=== PATIENT | male | born 1965 | race Caucasian/White ===

== ENCOUNTER 2018-12-30 11:26 | Day surgery (SDC) | payer OTHER ==
[~2018-12-30 11:26] MED LIST: Lactated Ringers 1,000 ML IV SCH
--- NOTE | 2018-12-30 12:46 | PCM.PREANE ---
Preanesthetic Assessment - Anesthesia/Transfusion/Family Hx Anesthesia History: Prior Anesthesia Without Reaction Family History of Anesthesia Reaction: No Transfusion History: No Prior Transfusion(s) - Review of Systems General: No Symptoms Pulmonary: No Symptoms Cardiovascular: No Symptoms Gastrointestinal: No Symptoms Neurological: No Symptoms Other: Reports: None - Physical Assessment O2 Sat by Pulse Oximetry: 95 Respiratory Rate: 16 Vital Signs: Last Vital Signs Temp 97.5 F 12/30/18 12:36 Pulse 87 12/30/18 12:36 Resp 16 12/30/18 12:36 BP 136/91 H 12/30/18 12:36 Pulse Ox 95 12/30/18 12:36 Height: 5 ft 9 in Weight: 101.151 kg ASA Class: 2 Mental Status: Alert & Oriented x3 Airway Class: Mallampati = 1 Dentition: Reports: Normal Dentition ROM/Head Extension: Full Lungs: Clear to Auscultation, Normal Respiratory Effort Cardiovascular: Regular Rate, Regular Rhythm - Allergies Allergies/Adverse Reactions: Allergies Allergy/AdvReac Type Severity Reaction Status Date / Time bupropion [From Wellbutrin] Allergy don't like Verified 12/27/18 08:52 how it makes me feel fluoxetine [From Prozac] Allergy dont like Verified 12/27/18 08:52 how it makes me feel - Blood Blood Available: No - Anesthesia Plan Pre-Op Medication Ordered: None - Acknowledgements Anesthesia Type Planned: MAC Pt an Appropriate Candidate for the Planned Anesthesia: Yes Alternatives and Risks of Anesthesia Discussed w Pt/Guardian: Yes Pt/Guardian Understands and Agrees with Anesthesia Plan: Yes Additional Comments: PMH: htn, remote hx of DVT, remote inhalational injury-uses proventil inhaler occasionally PLAN: mac/tiva PreAnesthesia Questionnaire HEENT History: Reports: Other (See Below) Other HEENT History: wears glasses, has barber hearing aids Cardiovascular History: Reports: High Cholesterol, Hypertension Respiratory History: Reports: COPD, PE Other Respiratory History: PE in 2000 Musculoskeletal History: Reports: Back Pain, Chronic, Fracture Other Musculoskeletal History: hx fx ribs, fingers and cracked vertebrae Psychiatric History: Reports: Anxiety, Depression Endocrine/Metabolic History: Reports: Obesity/BMI 30+ Dermatologic History: Reports: Other (See Below) - Past Surgical History Head Surgeries/Procedures: Reports: None HEENT Surgical History: Reports: Other (See Below) Other HEENT Surgeries/Procedures: hx of cyst removed from tongue Other Musculoskeletal Surgeries/Procedures:: hx "reattachment of rt pinky finger " Dermatological Surgical History: Reports: Skin Graft - SUBSTANCE USE Smoking Status *Q: Former Smoker Recreational Drug Use History: No - HOME MEDS Home Medications: Home Meds ALPRAZolam [Alprazolam] 1 tab PO BEDTIME PRN 12/27/18 [History] Albuterol [Proventil HFA] 2 puff INH ASDIRECTED PRN 12/27/18 [History] Aspirin [Adult Aspirin] 81 mg PO DAILY 12/27/18 [History] Lisinopril 20 mg PO DAILY PRN 12/27/18 [History] QUEtiapine Fumarate [Seroquel] 600 mg PO BEDTIME 12/27/18 [History] atorvaSTATin Calcium [Atorvastatin Calcium] 0.5 tab PO DAILY 12/27/18 [History] - CURRENT (IN HOUSE) MEDS Current Meds: Current Medications Lactated Ringer's (Ringers, Lactated) 1,000 mls @ 125 mls/hr IV ASDIRECTED MARANDA
[2018-12-30] MEDS ORDERED: Propofol 200 MG/20 ML SDV ONE ×2 (14:40→15:28)
--- NOTE | 2018-12-30 15:46 | PCM.POSTAN ---
POST ANESTHESIA ASSESSMENT - MENTAL STATUS Mental Status: Alert, Oriented - RESPIRATORY Respiratory Status: Respiratory Rate WNL, Airway Patent, O2 Saturation Stable - CARDIOVASCULAR CV Status: Pulse Rate WNL, Blood Pressure Stable - GASTROINTESTINAL GI Status: No Symptoms - POST OP HYDRATION Hydration Status: Adequate & Stable
--- NOTE | 2018-12-30 15:49 | PCM48HPAN ---
Post Anesthesia Note - EVALUATION WITHIN 48HRS OF ANESTHETIC Vital Signs in Normal Range: Yes Patient Participated in Evaluation: Yes Respiratory Function Stable: Yes Airway Patent: Yes Cardiovascular Function Stable: Yes Hydration Status Stable: Yes Pain Control Satisfactory: Yes Nausea and Vomiting Control Satisfactory: Yes Mental Status Recovered: Yes Resp Rate: 17
--- NOTE | 2018-12-30 15:49 | PCM.OPNOTE ---
- General Post-Op/Procedure Note Date of Surgery/Procedure: 12/30/18 Operative Procedure(s): egd w bx. colonoscopy Findings: see dict [id number] Pre Op Diagnosis: gerd and change in bowel habits Post-Op Diagnosis: Same Anesthesia Technique: Moderate Sedation Primary Surgeon: Lance Alfaro Complications: None Condition: Good
--- NOTE | 2018-12-30 16:52 | OR ---
SURGEON: Lance Alfaro MD DATE OF PROCEDURE: 12/30/2018 PREOPERATIVE DIAGNOSES: 1. Gastroesophageal reflux disease. 2. Current change in bowel habit. POSTOPERATIVE DIAGNOSES: 1. Gastroesophageal reflux disease. 2. Current change in bowel habit. PROCEDURES PERFORMED: Esophagogastroduodenoscopy with biopsy, and colonoscopy. PROCEDURE IN DETAIL: EGD: The patient was taken to the endoscopy room, and with the APPLICATION DEVELOPMENT INTERN, Diprivan was administered. A well-lubricated EGD scope was gently inserted through the oropharynx, down the esophagus, passing through the gastroesophageal junction, into the stomach. The mucosa was examined upon the passage. Any etiology will be noted. Once in the stomach, we continued to advance to the distal antrum, passed through the pylorus into the second portion of the duodenum. Again, the mucosa was examined for any abnormality and etiology. The scope was then retrieved back to the stomach and then retroflexed to look at the fundus of the stomach. If a biopsy was indicated, we will biopsy the antrum, body, and gastroesophageal junction. The air will be sucked out while the scope is retrieved to reduce the patient's discomfort. The patient tolerated the procedure well. There were no intraoperative complications. Dr. Alfaro was present through the whole procedure. Prior to surgery, a time-out had been called, the patient identified, procedure identified and antibiotic administered. Colonoscopy procedure: The patient was taken to the endoscopy room. A time out was called, patient identified, and procedure identified. Diprivan was then administrated. Patient went from awake to sleep, hearing doctor talking or door closing is normal. Perineum inspection and digital examination were then performed. A well- lubricated colonoscope was gently inserted through the rectum, advanced past the rectosigmoid junction, the descending colon, splenic flexure, transverse colon, hepatic flexure, ascending colon, arrived to the cecum. Cecum was identified as dictated in the finding. Then the scope was carefully withdrawn while attention was paid to the mucosal surface for any abnormality. Air will be sucked out during the scope withdrawal. At the rectum, retroflexed to examine any rectal diseases, fistula or hemorrhoids. Patient tolerated procedure well. There were no intraoperative complications, and Dr. Alfaro was present throughout the whole procedure. FINDINGS: EGD findings: 1. The patient is easily sedated with APPLICATION DEVELOPMENT INTERN and Diprivan. The patient is soundly snoring. 2. Oropharynx and proximal esophagus are free of history of disease. No stricture or inflammation. Distal esophagus shows moderate salmon-colored change, flame-like structure consistent with moderate amount GERD. Stomach rugae is normal in appearance. Antrum was a bit inflamed in some areas, looked like it is pretty inflamed, almost like evolving ulcer, but there is no edwin ulcer, and duodenum was grossly normal in appearance. Retroflexed look at the fundus of stomach, there is no hiatal hernia. Biopsy done at antrum, body, GE junction at 40 and sucked out the gas while scope pulling out. Colonoscopy findings: 1. The patient is easily sedated with APPLICATION DEVELOPMENT INTERN and Diprivan. The patient is soundly snoring. 2. Bowel prep is marginally acceptable to unacceptable, it is full of liquid stool, and also some semi-formed stool, and a lot of vegetable, undigested vegetable. Vegetable clogged up the scope and the opaque stool makes the study highly compromise. The patient's colon is rather redundant in the sigmoid, requiring some maneuver. Cecum indicated by ileocecal fold and one-to-one indentation can only be observed at this time. Light emittance and appendiceal orifice are not observed. Mucosa examined upon scope pulling out with constant large amount of copious irrigation. The patient does not seem to have diverticula inflammation, polyp, mass, growth, inflammation, stricture ulceration, AV malformation, none of those. The patient has moderate internal hemorrhoids and some external hemorrhoids. The patient would benefit from repeat colonoscopy 2 to 3 years from today, preferably two years because of the poor bowel prep the patient should refrain from having vegetable for at least 48 hours prior to procedure. TAL / RAJANI /[id number] ROBYN
== END 2018-12-30 16:10 | disposition home or self-care (01) ==
LOC: MW.SDS 11:26
PROVIDERS: ATTEND Surgery
DX: K21.9 Gastro-esophageal reflux disease without esophagitis (principal); K20.9 Esophagitis, unspecified; R19.4 Change in bowel habit; K64.8 Other hemorrhoids; K64.4 Residual hemorrhoidal skin tags; I10 Essential (primary) hypertension; E66.9 Obesity, unspecified; Z68.32 Body mass index [BMI] 32.0-32.9, adult; J44.9 Chronic obstructive pulmonary disease, unspecified; F41.9 Anxiety disorder, unspecified; F32.9 Major depressive disorder, single episode, unspecified; E78.00 Pure hypercholesterolemia, unspecified; Z87.891 Personal history of nicotine dependence; Z86.718 Personal history of other venous thrombosis and embolism; Z88.8 Allergy status to other drugs, medicaments and biological substances
CPT/HCPCS: 43239; 45378; J2704; J7120; 88305; 88312

== ENCOUNTER 2020-08-02 18:41 | Observation (INO) | payer OTHER ==
[2020-08-02] MEDS ORDERED: Sodium Chloride 0.9% 2.5 ML Syringe FLUSH PRN (19:38)
[2020-08-02] MEDS ORDERED: Sodium Chloride 0.9% 10 ML Syringe FLUSH PRN (19:38)
[2020-08-02] MEDS ORDERED: Lidocaine 5% 700 MG Patch TOP ONE (19:39)
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
--- NOTE | 2020-08-02 20:01 | CT ---
Head CT Technique: Multiple axial sections through the brain were obtained. Intravenous contrast was not utilized. Comparison: No prior intracranial imaging is available. Findings: Ventricles along the basal cisterns and sulci over the convexities are mildly prominent. No abnormal parenchymal densities are seen. No evidence of intracranial hemorrhage. No midline shift or mass-effect is appreciated. Bone window settings were reviewed. Visualized mastoid sinuses and paranasal sinuses show nothing acute. No acute calvarial finding is seen. Impression: 1. Mild generalized atrophy. 2. No acute intracranial abnormality is identified. Diagnostic code #1 This report was dictated in MDT
[2020-08-02 20:02] LABS: BLOOD UREA NITROGEN,BUN 12 mg/dL (7.0-18.0); CARBON DIOXIDE,CO2 25.7 mmol/L (21.0-32.0); CHLORIDE,CL 107 mmol/L (98-107); GLUCOSE RANDOM 119 mg/dL (74-106); POTASSIUM,K 3.4 mmol/L (3.5-5.1); SODIUM,NA 143 mmol/L (136-148)
--- NOTE | 2020-08-02 20:09 | CR ---
Right shoulder: 3 views of the right shoulder were obtained. Comparison: Prior right shoulder study of 04/10/20 and prior right shoulder MRI of 04/29/20. Findings: Mild joint space narrowing and mild inferior bony projection off the acromioclavicular joint. Glenohumeral joint appears within normal limits. No acute fracture, dislocation or other bony abnormality is appreciated. Impression: 1. Mild degenerative change within the acromioclavicular joint which is stable from prior exam. 2. Nothing acute is seen on right shoulder study. Diagnostic code #2 This report was dictated in MDT
[2020-08-02] MEDS ORDERED: OLANZapine 10 MG in Water For Injection, Sterile 2.1 ML IM ONE (22:52)
[2020-08-02] MEDS ORDERED: Acetaminophen 325 MG Tab PO PRN (23:25)
[2020-08-02] MEDS ORDERED: Albuterol/Ipratropium 3.0-0.5 MG/3 ML Neb Soln NEB PRN (23:25)
[2020-08-02] MEDS ORDERED: LORazepam 2 MG/ML SDV IV PRN (23:25)
[2020-08-02] MEDS ORDERED: Potassium Chloride 10% 20 MEQ/15 ML Soln 30 ML UD Cup PO ONE (23:30)
--- NOTE | 2020-08-03 06:21 | PCM.SN.2 ---
- Free Text/Narrative Note: Contact information for friend that dropped patient off for corroborating information: Duane Singh
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
== END 2020-08-03 11:13 | disposition home or self-care (01) ==
LOC: MW.ED 18:41 → MW.MS 22:11
PROVIDERS: ADMIT Student in an Organized Health Care Education/Training Program; ATTEND Student in an Organized Health Care Education/Training Program
DX: R41.82 Altered mental status, unspecified (principal); E78.00 Pure hypercholesterolemia, unspecified; I10 Essential (primary) hypertension; J44.9 Chronic obstructive pulmonary disease, unspecified; F41.9 Anxiety disorder, unspecified; E78.5 Hyperlipidemia, unspecified; E66.9 Obesity, unspecified; F32.9 Major depressive disorder, single episode, unspecified; Z20.828 Contact with and (suspected) exposure to other viral communicable diseases; Z88.8 Allergy status to other drugs, medicaments and biological substances; Z79.82 Long term (current) use of aspirin; Z79.899 Other long term (current) drug therapy; Z68.30 Body mass index [BMI] 30.0-30.9, adult
CPT/HCPCS: 36415; 70450; 73030; 80053; 80305; 80307; 82140; 82962; 83605; 84443; 84484; 85025; 87635; 93005; 96372; 99285; A9270; J3490; G0378; U0002

== ENCOUNTER 2020-08-28 06:42 | Day surgery (SDC) | payer OTHER ==
[2020-08-28] MEDS ORDERED: Midazolam 1 MG/ML 2 ML SDV ONE ×2 (07:20→07:29)
[2020-08-28] MEDS ORDERED: Bupivacaine 0.5% 30 ML SDV ONE (07:24)
[2020-08-28] MEDS: fentaNYL 100 MCG/2 ML SDV ONE ×2 (07:25→08:10)
[2020-08-28] MEDS ORDERED: Glycopyrrolate 0.2 MG/ML SDV ONE ×2 (07:26→07:34)
[2020-08-28] MEDS ORDERED: Ketorolac 30 MG/ML SDV ONE (07:26)
[2020-08-28] MEDS ORDERED: Dexamethasone 4 MG/ML 5 ML MDV ONE (07:26)
[2020-08-28] MEDS ORDERED: Ondansetron 4 MG/2 ML SDV ONE (07:26)
[2020-08-28] MEDS ORDERED: Sodium Chloride 0.9% 20 ML ONE (07:26)
[2020-08-28] MEDS ORDERED: Lidocaine 2% 5 ML SDV ONE (07:26)
[2020-08-28] MEDS ORDERED: ceFAZolin 1 GM Vial ONE (07:26)
[2020-08-28] MEDS ORDERED: Propofol 200 MG/20 ML SDV ONE (07:29)
[2020-08-28] MEDS ORDERED: fentaNYL 100 MCG/2 ML SDV ONE (07:30)
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
[2020-08-28] MEDS ORDERED: Rocuronium Bromide 50 MG/5 ML Syringe ONE (07:34)
[2020-08-28] MEDS ORDERED: Sugammadex Sodium 200 MG/2 ML VIAL ONE (07:35)
[2020-08-28] MEDS: Lactated Ringers 1,000 ML IV SCH ×2 (07:50→12:39)
[2020-08-28] MEDS ORDERED: ceFAZolin 2 GM in Premix Bag 1 BAG IV SCH (08:00)
[2020-08-28] MEDS ORDERED: Midazolam 1 MG/ML 2 ML SDV IVPUSH ONE (08:05)
[2020-08-28] MEDS ORDERED: fentaNYL 50 MCG/ML SDV IVPUSH ONE (08:06)
[2020-08-28] MEDS ORDERED: Phenylephrine 1% 10 MG/ML SDV ONE (08:19)
[2020-08-28] MEDS ORDERED: Acetaminophen 1,000 MG in Premix Bag 1 BAG IV PRN (08:44)
--- NOTE | 2020-08-28 08:49 | PCM.PRNOTE ---
- Free Text/Narrative Note: Anes Note R ISB under IV sedation.. Patient brought to OR ! and monitors applied. Using a landmark technique, the R IS groove aas identified. 1/2 cc 1% lido injected subq. Using a 22 X 2 insulated needle and a nerve stimulator set at 1.2mA, the appropraite twitch was obtained without parasthesia. Carefull aspiration was performed. No blood was returned. 30cc 0.5% bupivicaine with 8 mg decadron added was carefullly and slowly injected. Smooth and uneventful procedure. Patient immediately reports improvement in r should pain, which was 8 out of 10 preop. Liza well. Time with patient [id number] James Peterson CRNA
--- NOTE | 2020-08-28 09:30 | PCM.OPNOTE ---
- General Post-Op/Procedure Note Date of Surgery/Procedure: 08/28/20 Operative Procedure(s): Right shoulder open rotator cuff repair and open acromioplasty Findings: Right shoulder moderate sized acromial spur and full-thickness rotator cuff tear of the anterior supraspinatus tendon Pre Op Diagnosis: Right shoulder full-thickness rotator cuff tear Post-Op Diagnosis: Right shoulder full-thickness rotator cuff tear Anesthesia Technique: General ET Tube, Regional Block Primary Surgeon: Vinny Montes Architectural Model Maker: Melissa Babin Architectural Model Maker Was Necessary: Positioning and retraction Pathology: Acromial bone cuts EBL in mLs: 10 Complications: None Free Text/Narrative:: MRI showed a full-thickness tear of the supraspinatus rotator cuff tendon. Patient had failed nonoperative management. After discussion of the risks and benefits of surgery, the patient consented to proceed with surgery. He was medically cleared for surgery. Patient was taken to the operating room. He was placed in a low beachchair position. The right shoulder and upper extremity were prepped and draped in the usual sterile manner. An oblique incision was made anteriorly over the anterior aspect of the acromion. Skin was incised with a scalpel. Subcutaneous tissue was incised electrocautery. The anterior raphae of the deltoid was split between fibers. The anterior head of the deltoid was taken off the anterior acromion. A retractor was placed between the acromion and the rotator cuff tendons to protect the tendons. An acromioplasty was performed with an oscillating saw taking an anterior cut and then an inferior cut with a smooth undersurface of the acromion noted. The full-thickness tear of the anterior aspect of the supraspinatus was identified. The degenerative tendon was excised with a scalpel. A bleeding bony bed was created with a rongeur. A margin convergence suture was placed with #2 FiberWire. 2 suture repairs were then placed through bone tunnels and Estrada-Brandon's sutures into the tendon. These were then tightened bringing the tendon edges back to the bleeding bone bed. Wounds were irrigated. The deltoid was repaired back to the acromion with #5 Ethibond suture through bone tunnels. The anterior raphae was closed with interrupted #1 Vicryl suture. Subcutaneous tissue was closed with interrupted 2-0 Vicryl suture. Running Monocryl for final skin closure. A sterile dressing was applied and patient was placed in a sling and a come to the recovery in stable condition. Pain management: Regional block, ibuprofen, acetaminophen, oxycodone. Venous thromboembolism prophylaxis: Not indicated for soft tissue upper extremity procedure and ambulatory patient Prophylactic antibiotics: Not indicated for outpatient procedure Restrictions: Patient is nonweightbearing on his right upper extremity for 3 months. He should be in a sling full-time for the first 6 weeks with pendulum exercises only and no active range of motion or lifting. At 6 weeks he may begin active range of motion of the shoulder with physical therapy, but should not lift greater than 1 pound. At 3 months he should begin rotator cuff strengthening.
[2020-08-28] MEDS: fentaNYL 100 MCG/2 ML SDV IVPUSH PRN ×2 (09:48→09:54)
[2020-08-28] MEDS ORDERED: HYDROmorphone 2 MG/ML Syringe ONE (10:00)
[2020-08-28] MEDS: HYDROmorphone 2 MG/ML Syringe IVPUSH PRN ×4 (10:02→10:21)
[2020-08-28] MEDS ORDERED: HYDROmorphone 2 MG/ML Syringe IVPUSH PRN (10:12)
--- NOTE | 2020-08-28 10:45 | PCM.POSTAN ---
POST ANESTHESIA ASSESSMENT - MENTAL STATUS Mental Status: Alert, Oriented - VITAL SIGNS Vital Signs: Last Vital Signs Temp 36.5 C 08/28/20 09:34 Pulse 105 H 08/28/20 10:24 Resp 11 L 08/28/20 10:24 BP 164/105 H 08/28/20 10:24 Pulse Ox 97 08/28/20 10:24 - RESPIRATORY Respiratory Status: Respiratory Rate WNL, Airway Patent, O2 Saturation Stable - CARDIOVASCULAR CV Status: Pulse Rate WNL, Blood Pressure Stable - GASTROINTESTINAL GI Status: No Symptoms - PAIN Pain Score: 6 - POST OP HYDRATION Hydration Status: Adequate & Stable - OBSERVATIONS Free Text/Narrative:: No anesthesia problems
[2020-08-28] MEDS ORDERED: diphenhydrAMINE 50 MG/ML SDV ONE (10:46)
[2020-08-28] MEDS ORDERED: diphenhydrAMINE 50 MG/ML SDV IVPUSH ONE (11:26)
[2020-08-28] MEDS ORDERED: LORazepam 2 MG/ML SDV IVPUSH ONE (11:43)
[2020-08-28] MEDS ORDERED: oxyCODONE 5 MG Tab ONE (12:16)
[2020-08-28] MEDS ORDERED: oxyCODONE 5 MG Tab PO ONE (12:23)
--- NOTE | 2020-08-28 13:16 | PCM48HPAN ---
Post Anesthesia Note - EVALUATION WITHIN 48HRS OF ANESTHETIC Vital Signs in Normal Range: Yes Patient Participated in Evaluation: Yes Respiratory Function Stable: Yes Airway Patent: Yes Cardiovascular Function Stable: Yes Hydration Status Stable: Yes Pain Control Satisfactory: Yes Nausea and Vomiting Control Satisfactory: Yes Mental Status Recovered: Yes Vital Signs: Last Vital Signs Temp 36.8 C 08/28/20 10:33 Pulse 108 H 08/28/20 11:15 Resp 16 08/28/20 12:00 BP 143/87 H 08/28/20 12:00 Pulse Ox 95 08/28/20 12:00 - COMMENTS/OBSERVATIONS Free Text/Narrative:: No anesthesia problems
== END 2020-08-28 13:25 | disposition home or self-care (01) ==
LOC: MW.SDS 06:42
PROVIDERS: ATTEND Orthopaedic Surgery
DX: M75.121 Complete rotator cuff tear or rupture of right shoulder, not specified as traumatic (principal); F41.9 Anxiety disorder, unspecified; G47.00 Insomnia, unspecified; R00.0 Tachycardia, unspecified; E78.5 Hyperlipidemia, unspecified; G89.29 Other chronic pain; I10 Essential (primary) hypertension; E78.00 Pure hypercholesterolemia, unspecified; F32.9 Major depressive disorder, single episode, unspecified; Z88.8 Allergy status to other drugs, medicaments and biological substances; Z79.899 Other long term (current) drug therapy; Z79.82 Long term (current) use of aspirin
CPT/HCPCS: 23130; 23412; A9270; J0690; J1100; J1170; J1200; J1885; J2001; J2060; J2250; J2370; J2405; J2704; J3010; J3490; J7120

== ENCOUNTER 2020-10-05 18:45 | Emergency (ER) | payer OTHER ==
[2020-10-05] MEDS ORDERED: Naloxone 0.4 MG/ML Syringe IVPUSH ONE ×3 (19:16→19:39)
[2020-10-05] MEDS ORDERED: Naloxone 0.4 MG/ML Syringe ONE (19:37)
[2020-10-05] MEDS ORDERED: Lactated Ringers 1,000 ML IV ONE (19:39)
[2020-10-05] MEDS ORDERED: Sodium Chloride 0.9% 10 ML Syringe FLUSH PRN (19:39)
[2020-10-05] MEDS ORDERED: Sodium Chloride 0.9% 2.5 ML Syringe FLUSH PRN (19:39)
--- NOTE | 2020-10-05 19:49 | EDM.PDOC ---
ED HPI GENERAL MEDICAL PROBLEM - General Chief Complaint: Upper Extremity Injury/Pain Stated Complaint: pain Time Seen by Provider: 10/05/20 19:09 Source of Information: Reports: Patient, Family, Other (roommate) History Limitations: Reports: Altered Mental Status - History of Present Illness INITIAL COMMENTS - FREE TEXT/NARRATIVE: 55-year-old male h/o narcotic dependence was brought in by his roommate for decreased LOC. His roommate warned us upon drop off that there is concern for substance overdose and not to give him anything for pain or anxiety. History and ROS is limited secondary to altered mental status. He complains of right shoulder pain. He is requesting meds for pain. His right shoulder pain is moderate, constant, exacerbated with range of motion, no alleviating factors, nonradiating. He recently had right rotator cuff surgery 08/28. [facility] called and informed us that he was prescribed 60 tablets of Xanax on Wednesday by another doctor, Dr. Augie Ruiz MD, but today there were only 12 tablets left in the bottle. Today at [facility], he claims that his took his medications and he was prescribed 4 tablets of Xanax in the ER today. HPI and ROS is limited secondary to altered mental status. Past medical history: No additional pertinent history Past Surgical history: No additional pertinent history Social history: No additional pertinent history Family history: No additional pertinent history PHYSICAL EXAM General: obtunded, slow to answer questions, no distress. HEENT: dry mucous membrane, 2mm pupils B/L sluggish, slurred speech Neck: supple, no meningismus, no Kernig or Brudzinski Cardiac: S1S2 tachycardia Respiratory: bradypneic Abdomen: Soft, nontender, no rebound or guarding, nondistended, no pulsatile mass. Back: nontender Musculoskeletal: NVI distally, right rotator cuff no erythema, nontender, no warmth, no drainage, no deformity Neuro: obtunded no pain Pain Score (Numeric/FACES): 0 - Related Data Allergies Allergy/AdvReac Type Severity Reaction Status Date / Time bupropion [From Wellbutrin] Allergy don't like Verified 08/22/20 11:03 how it makes me feel fluoxetine [From Prozac] Allergy dont like Verified 08/22/20 09:30 how it makes me feel Home Meds: Home Meds Albuterol [Proventil HFA] 2 puff INH ASDIRECTED PRN 12/27/18 [History] Aspirin [Adult Aspirin] 81 mg PO DAILY 12/27/18 [History] QUEtiapine Fumarate [Seroquel] 600 mg PO BEDTIME 08/22/20 [History] Acetaminophen/HYDROcodone [[place] 325-5 MG] 1 tab PO Q6H #20 tablet 08/28/20 [Rx] Ibuprofen 800 mg PO TID #60 tablet 08/28/20 [Rx] Past Medical History HEENT History: Reports: Hard of Hearing, Other (See Below) Other HEENT History: wears glasses, has barber hearing aids Cardiovascular History: Reports: High Cholesterol, Hypertension, Other (See Below) Other Cardiovascular History: HTN and high cholesterol in the past Respiratory History: Reports: PE Other Respiratory History: PE in 2000, placed on blood thinner for a while, Ok since Gastrointestinal History: Reports: None Genitourinary History: Reports: None Musculoskeletal History: Reports: Fracture, Other (See Below) Other Musculoskeletal History: hx fx ribs, fingers and cracked vertebrae Neurological History: Reports: None Psychiatric History: Reports: PTSD Other Psychiatric History: unable to verify Endocrine/Metabolic History: Reports: None, Obesity/BMI 30+ Hematologic History: Reports: None Immunologic History: Reports: None Oncologic (Cancer) History: Reports: None Dermatologic History: Reports: None, Other (See Below) - Infectious Disease History Infectious Disease History: Reports: None - Past Surgical History Head Surgeries/Procedures: Reports: None HEENT Surgical History: Reports: Other (See Below) Other HEENT Surgeries/Procedures: hx of cyst removed from tongue Cardiovascular Surgical History: Reports: None Other Cardiovascular Surgeries/Procedures: unable to verify Respiratory Surgical History: Reports: None Other Respiratory Surgeries/Procedures: unable to verify GI Surgical History: Reports: None Other GI Surgeries/Procedures: unable to verify Male Surgical History: Reports: None Other Male Surgeries/Procedures: unable to verify Endocrine Surgical History: Reports: None Other Endocrine Surgeries/Procedures: unable to verify Neurological Surgical History: Reports: None Other Neurological Surgeries/Procedures: unable to verify Musculoskeletal Surgical History: Reports: Other (See Below) Other Musculoskeletal Surgeries/Procedures:: hx "reattachment of rt pinky finger" Oncologic Surgical History: Reports: None Other Oncologic Surgeries/Procedures: unable to verify Dermatological Surgical History: Reports: Other (See Below) Social & Family History - Family History Family Medical History: No Pertinent Family History - Tobacco Use Tobacco Use Status *Q: Unknown Ever Used Tobacco - Caffeine Use Caffeine Use: Reports: None Review of Systems - Review of Systems Review Of Systems: See Below (see dictation) ED EXAM, GENERAL - Physical Exam Exam: See Below (see dictation) #1 Interpretation EKG Interpretation Comments: Heart rate = 135 bpm, sinus tachycardia, QTc 467, ST depression V2 - V5, normal QRS interval, no STEMI. EKG and rhythm strip interpreted by me at 1927 Course - Vital Signs Last Recorded V/S: Last Vital Signs Temp 98.8 F 10/05/20 19:18 Pulse 120 H 10/05/20 20:01 Resp 16 10/05/20 20:01 BP 148/85 H 10/05/20 20:01 Pulse Ox 95 10/05/20 20:01 - Orders/Labs/Meds Orders: Active Orders 24 hr Category Date Time Status Cardiac Monitoring [RC] . DIRECTED Care 10/05/20 19:39 Active EKG Documentation Completion [RC] STAT Care 10/05/20 19:40 Active Pulse Oximetry [RC] ASDIRECTED Care 10/05/20 19:39 Active Chest 1V Frontal [CR] Stat Exams 10/05/20 21:15 Taken Head wo Cont [CT] Stat Exams 10/05/20 21:15 Taken BLOOD GAS ARTERIAL [BG] Stat Lab 10/05/20 19:40 Ordered CORONAVIRUS COVID-19 PCR PHL Stat Lab 10/05/20 19:39 Ordered CULTURE BLOOD [BC] Stat Lab 10/05/20 20:10 Received CULTURE BLOOD [BC] Stat Lab 10/05/20 20:20 Received PROCALCITONIN [REF] Stat Lab 10/05/20 19:20 Received Sodium Chloride 0.9% [Saline Flush] Med 10/05/20 19:39 Active 10 ml FLUSH ASDIRECTED PRN Sodium Chloride 0.9% [Saline Flush] Med 10/05/20 19:39 Active 2.5 ml FLUSH ASDIRECTED PRN Blood Culture x2 Reflex Set [OM.PC] Stat Oth 10/05/20 19:40 Ordered Saline Lock Insert [OM.PC] Stat Oth 10/05/20 19:39 Ordered Medication Orders Sodium Chloride (Saline Flush) 10 ml FLUSH ASDIRECTED PRN PRN Reason: Keep Vein Open Last Admin: 10/05/20 19:54 Dose: 10 ml Documented by: ANITA Sodium Chloride (Saline Flush) 2.5 ml FLUSH ASDIRECTED PRN PRN Reason: Keep Vein Open Last Admin: 10/05/20 19:54 Dose: 2.5 ml Documented by: ANITA Labs: Laboratory Tests 10/05/20 10/05/20 10/05/20 Range/Units 19:20 19:20 19:20 WBC 5.35 (4.0-11.0) K/uL RBC 5.05 (4.50-5.90) M/uL Hgb 15.3 (13.0-17.0) g/dL Hct 44.4 (38.0-50.0) % MCV 87.9 (80.0-98.0) fL MCH 30.3 (27.0-32.0) pg MCHC 34.5 (31.0-37.0) g/dL RDW Std Deviation 39.5 (28.0-62.0) fl RDW Coeff of Pushpa 13 (11.0-15.0) % Plt Count 278 (150-400) K/uL MPV 9.80 (7.40-12.00) fL Neut % (Auto) 53.4 (48.0-80.0) % Lymph % (Auto) 36.1 (16.0-40.0) % [place] % (Auto) 8.0 (0.0-15.0) % Eos % (Auto) 2.1 (0.0-7.0) % Baso % (Auto) 0.4 (0.0-1.5) % Neut # (Auto) 2.9 (1.4-5.7) K/uL Lymph # (Auto) 1.9 (0.6-2.4) K/uL [place] # (Auto) 0.4 (0.0-0.8) K/uL Eos # (Auto) 0.1 (0.0-0.7) K/uL Baso # (Auto) 0.0 (0.0-0.1) K/uL Nucleated RBC % 0.0 /100WBC Nucleated RBCs # 0 K/uL ESR (0-19) mm/hr INR 1.05 APTT 26.4 (18.6-31.3) SEC D-Dimer, Quantitative 0.43 (0.0-0.50) mg/L FEU Lactate 1.6 (0.20-2.00) mmol/L Sodium (136-148) mmol/L Potassium (3.5-5.1) mmol/L Chloride (98-107) mmol/L Carbon Dioxide (21.0-32.0) mmol/L BUN (7.0-18.0) mg/dL Creatinine (0.8-1.3) mg/dL Est Cr Clr Drug Dosing Estimated GFR (MDRD) ml/min Glucose (74-106) mg/dL Calcium (8.5-10.1) mg/dL Phosphorus (2.6-4.7) mg/dL Magnesium (1.8-2.4) mg/dL Total Bilirubin (0.2-1.0) mg/dL AST (15-37) IU/L ALT (14-63) IU/L Alkaline Phosphatase (46-116) U/L Troponin I (0.000-0.056) ng/mL C-Reactive Protein (0.00-0.90) mg/dL Total Protein (6.4-8.2) g/dL Albumin (3.4-5.0) g/dL Globulin (2.6-4.0) g/dL Albumin/Globulin Ratio (0.9-1.6) Free T4 (0.76-1.46) ng/dL TSH 3rd Generation (0.36-3.74) uIU/mL Urine Color Urine Appearance Urine pH (5.0-8.0) Ur Specific Robinson (1.001-1.035) Urine Protein (NEGATIVE) mg/dL Urine Glucose (UA) (NEGATIVE) mg/dL Urine Ketones (NEGATIVE) mg/dL Urine Occult Blood (NEGATIVE) Urine Nitrite (NEGATIVE) Urine Bilirubin (NEGATIVE) Urine Urobilinogen (<2.0) EU/dL Ur Leukocyte Esterase (NEGATIVE) Urine RBC (0-2/HPF) Urine WBC (0-5/HPF) Ur Epithelial Cells (NONE-FEW) Urine Bacteria (NEGATIVE) Salicylates (0-20) mg/dL Urine Opiates Screen (NEGATIVE) Ur Oxycodone Screen (NEGATIVE) Urine Methadone Screen (NEGATIVE) Acetaminophen ug/mL Ur Barbiturates Screen (NEGATIVE) Ur Phencyclidine Scrn (NEGATIVE) Ur Amphetamine Screen (NEGATIVE) U Methamphetamines Scrn (NEGATIVE) U Benzodiazepines Scrn (NEGATIVE) U Cocaine Metab Screen (NEGATIVE) U Marijuana (THC) Screen (NEGATIVE) Ethyl Alcohol mg/dL 10/05/20 10/05/20 10/05/20 Range/Units 19:20 19:20 20:54 WBC (4.0-11.0) K/uL RBC (4.50-5.90) M/uL Hgb (13.0-17.0) g/dL Hct (38.0-50.0) % MCV (80.0-98.0) fL MCH (27.0-32.0) pg MCHC (31.0-37.0) g/dL RDW Std Deviation (28.0-62.0) fl RDW Coeff of Pushpa (11.0-15.0) % Plt Count (150-400) K/uL MPV (7.40-12.00) fL Neut % (Auto) (48.0-80.0) % Lymph % (Auto) (16.0-40.0) % [place] % (Auto) (0.0-15.0) % Eos % (Auto) (0.0-7.0) % Baso % (Auto) (0.0-1.5) % Neut # (Auto) (1.4-5.7) K/uL Lymph # (Auto) (0.6-2.4) K/uL [place] # (Auto) (0.0-0.8) K/uL Eos # (Auto) (0.0-0.7) K/uL Baso # (Auto) (0.0-0.1) K/uL Nucleated RBC % /100WBC Nucleated RBCs # K/uL ESR 5 (0-19) mm/hr INR APTT (18.6-31.3) SEC D-Dimer, Quantitative (0.0-0.50) mg/L FEU Lactate (0.20-2.00) mmol/L Sodium 140 (136-148) mmol/L Potassium 3.6 (3.5-5.1) mmol/L Chloride 103 (98-107) mmol/L Carbon Dioxide 26.9 (21.0-32.0) mmol/L BUN 9 (7.0-18.0) mg/dL Creatinine 1.1 (0.8-1.3) mg/dL Est Cr Clr Drug Dosing TNP Estimated GFR (MDRD) > 60.0 ml/min Glucose 151 H (74-106) mg/dL Calcium 8.8 (8.5-10.1) mg/dL Phosphorus 2.9 (2.6-4.7) mg/dL Magnesium 2.2 (1.8-2.4) mg/dL Total Bilirubin 0.4 (0.2-1.0) mg/dL AST 13 L (15-37) IU/L ALT 26 (14-63) IU/L Alkaline Phosphatase 67 (46-116) U/L Troponin I < 0.050 (0.000-0.056) ng/mL C-Reactive Protein 0.30 (0.00-0.90) mg/dL Total Protein 7.5 (6.4-8.2) g/dL Albumin 4.3 (3.4-5.0) g/dL Globulin 3.2 (2.6-4.0) g/dL Albumin/Globulin Ratio 1.3 (0.9-1.6) Free T4 1.58 H (0.76-1.46) ng/dL TSH 3rd Generation 1.11 (0.36-3.74) uIU/mL Urine Color Urine Appearance Urine pH (5.0-8.0) Ur Specific Robinson (1.001-1.035) Urine Protein (NEGATIVE) mg/dL Urine Glucose (UA) (NEGATIVE) mg/dL Urine Ketones (NEGATIVE) mg/dL Urine Occult Blood (NEGATIVE) Urine Nitrite (NEGATIVE) Urine Bilirubin (NEGATIVE) Urine Urobilinogen (<2.0) EU/dL Ur Leukocyte Esterase (NEGATIVE) Urine RBC (0-2/HPF) Urine WBC (0-5/HPF) Ur Epithelial Cells (NONE-FEW) Urine Bacteria (NEGATIVE) Salicylates 1.5 (0-20) mg/dL Urine Opiates Screen NEGATIVE (NEGATIVE) Ur Oxycodone Screen NEGATIVE (NEGATIVE) Urine Methadone Screen NEGATIVE (NEGATIVE) Acetaminophen <2.0 ug/mL Ur Barbiturates Screen NEGATIVE (NEGATIVE) Ur Phencyclidine Scrn NEGATIVE (NEGATIVE) Ur Amphetamine Screen NEGATIVE (NEGATIVE) U Methamphetamines Scrn NEGATIVE (NEGATIVE) U Benzodiazepines Scrn POSITIVE (NEGATIVE) U Cocaine Metab Screen NEGATIVE (NEGATIVE) U Marijuana (THC) Screen NEGATIVE (NEGATIVE) Ethyl Alcohol < 3.0 mg/dL 10/05/20 Range/Units 20:54 WBC (4.0-11.0) K/uL RBC (4.50-5.90) M/uL Hgb (13.0-17.0) g/dL Hct (38.0-50.0) % MCV (80.0-98.0) fL MCH (27.0-32.0) pg MCHC (31.0-37.0) g/dL RDW Std Deviation (28.0-62.0) fl RDW Coeff of Pushpa (11.0-15.0) % Plt Count (150-400) K/uL MPV (7.40-12.00) fL Neut % (Auto) (48.0-80.0) % Lymph % (Auto) (16.0-40.0) % [place] % (Auto) (0.0-15.0) % Eos % (Auto) (0.0-7.0) % Baso % (Auto) (0.0-1.5) % Neut # (Auto) (1.4-5.7) K/uL Lymph # (Auto) (0.6-2.4) K/uL [place] # (Auto) (0.0-0.8) K/uL Eos # (Auto) (0.0-0.7) K/uL Baso # (Auto) (0.0-0.1) K/uL Nucleated RBC % /100WBC Nucleated RBCs # K/uL ESR (0-19) mm/hr INR APTT (18.6-31.3) SEC D-Dimer, Quantitative (0.0-0.50) mg/L FEU Lactate (0.20-2.00) mmol/L Sodium (136-148) mmol/L Potassium (3.5-5.1) mmol/L Chloride (98-107) mmol/L Carbon Dioxide (21.0-32.0) mmol/L BUN (7.0-18.0) mg/dL Creatinine (0.8-1.3) mg/dL Est Cr Clr Drug Dosing Estimated GFR (MDRD) ml/min Glucose (74-106) mg/dL Calcium (8.5-10.1) mg/dL Phosphorus (2.6-4.7) mg/dL Magnesium (1.8-2.4) mg/dL Total Bilirubin (0.2-1.0) mg/dL AST (15-37) IU/L ALT (14-63) IU/L Alkaline Phosphatase (46-116) U/L Troponin I (0.000-0.056) ng/mL C-Reactive Protein (0.00-0.90) mg/dL Total Protein (6.4-8.2) g/dL Albumin (3.4-5.0) g/dL Globulin (2.6-4.0) g/dL Albumin/Globulin Ratio (0.9-1.6) Free T4 (0.76-1.46) ng/dL TSH 3rd Generation (0.36-3.74) uIU/mL Urine Color YELLOW Urine Appearance CLEAR Urine pH 5.5 (5.0-8.0) Ur Specific [place] >= 1.030 (1.001-1.035) Urine Protein NEGATIVE (NEGATIVE) mg/dL Urine Glucose (UA) NEGATIVE (NEGATIVE) mg/dL Urine Ketones NEGATIVE (NEGATIVE) mg/dL Urine Occult Blood NEGATIVE (NEGATIVE) Urine Nitrite NEGATIVE (NEGATIVE) Urine Bilirubin NEGATIVE (NEGATIVE) Urine Urobilinogen 0.2 (<2.0) EU/dL Ur Leukocyte Esterase TRACE H (NEGATIVE) Urine RBC 0-1 (0-2/HPF) Urine WBC 0-2 (0-5/HPF) Ur Epithelial Cells RARE (NONE-FEW) Urine Bacteria RARE (NEGATIVE) Salicylates (0-20) mg/dL Urine Opiates Screen (NEGATIVE) Ur Oxycodone Screen (NEGATIVE) Urine Methadone Screen (NEGATIVE) Acetaminophen ug/mL Ur Barbiturates Screen (NEGATIVE) Ur Phencyclidine Scrn (NEGATIVE) Ur Amphetamine Screen (NEGATIVE) U Methamphetamines Scrn (NEGATIVE) U Benzodiazepines Scrn (NEGATIVE) U Cocaine Metab Screen (NEGATIVE) U Marijuana (THC) Screen (NEGATIVE) Ethyl Alcohol mg/dL Meds: Medications Generic Name Dose Route Start Last Admin Trade Name Freq PRN Reason Stop Dose Admin Sodium Chloride 10 ml 10/05/20 19:39 10/05/20 19:54 Saline Flush FLUSH 10 ml ASDIRECTED PRN Administration Keep Vein Open Sodium Chloride 2.5 ml 10/05/20 19:39 10/05/20 19:54 Saline Flush FLUSH 2.5 ml ASDIRECTED PRN Administration Keep Vein Open Discontinued Medications Generic Name Dose Route Start Last Admin Trade Name Freq PRN Reason Stop Dose Admin Lactated Ringer's 1,000 mls @ 999 mls/hr 10/05/20 19:39 10/05/20 19:54 Ringers, Lactated IV 10/05/20 20:39 999 mls/hr .BOLUS ONE Administration Naloxone HCl 1 mg 10/05/20 19:16 10/05/20 19:22 Narcan IVPUSH 10/05/20 19:17 1 mg ONETIME ONE Administration Naloxone HCl 1 mg 10/05/20 19:35 10/05/20 19:39 Narcan IVPUSH 10/05/20 19:36 1 mg ONETIME ONE Administration Naloxone HCl 1 mg 10/05/20 19:39 10/05/20 19:55 Narcan IVPUSH 10/05/20 19:40 1 mg ONETIME ONE Administration Naloxone HCl Confirm 10/05/20 19:37 10/05/20 19:43 Narcan Administered 10/05/20 19:38 Not Given Dose 1.2 mg .ROUTE .STK-MED ONE - Re-Assessments/Exams Free Text/Narrative Re-Assessment/Exam: 10/05/20 19:30 Patient was bradypneic, oxygen saturation at triage was 90% on room air, placed on 2L nasal cannula. Accu-Chek within normal limits, given 1 mg IV Narcan with transient improvement in mentation. 10/05/20 19:45 I reassessed the patient, his mentation remains obtunded, will give 2nd 1mg IV Narcan. 10/05/20 19:49 Mentation improved after second 1mg IV Narcan. 10/05/20 20:43 Patient is now up and standing, requesting to go home. We tried to reach his who was unavailable. 10/05/20 20:49 I spoke with his Carleen Durant (Mitchell), she states he has a high risk of substance dependence and has been hospital hopping for opiates and BZD. His father recently and this is contributing to his substance abuse. He used to be on methadone and went to rehab. [facility] secondary to concern of [facility]. He has a house in [place] and stays with a roommate. She denies taking his BZD away despite him making those claims. He is reluctant to go to rehab unless court ordered. She is concerned that he might overdose on his BZD that he might kill himself accidently. I will put him on a court hold. 10/05/20 21:10 d/w Dr. Lm Vaca (psychiatrist) at [facility], he reocmmends sending pt to ER for detox. 10/05/20 21:23 Discussed with ER physician at , Dr. Lana Morrison will accept transfer. MEDICAL DECISION MAKING: I reviewed the patients past medical records, lab and radiographic findings. I discussed the case with the patient. My differential diagnosis included: Benzodiazepine overdose, opiate overdose, hypoglycemia, substance dependence. Patient came in lethargic, slurred speech with ataxia, consistent with overdose on Xanax by history. He claims he has right shoulder pain status post right rotator cuff surgery, he is afebrile, there is no warmth or erythema to the incision site, I do not suspect infected joint. After speaking with the , I am concerned of his BZD dependence at risk of accidentally overdosing enough to kill himself. He has been found multiple incidents where he is obtunded and slurring his speech but he would deny his dependence. He does not admit to wanting to kill himself. is concerned that he cannot care for himself secondary to his substance dependence and he is at risk of overdose and self harm. He will likely need inpatient detox as outpt detox is not tenable for him secondary to high risk of noncompliance. His ability to care for personal needs is diminished as a result of his BZD dependence, to the extent that presents a clear and present danger of harm to himself due to inability to satisfy basic needs. Departure - Departure Time of Disposition: 21:11 Disposition: DC/Tfer to Other 70 Condition: Fair Clinical Impression: Altered mental status, Benzodiazepine dependence, Benzodiazepine abuse, continuous - Discharge Information *PRESCRIPTION DRUG MONITORING PROGRAM REVIEWED*: Not Applicable *COPY OF PRESCRIPTION DRUG MONITORING REPORT IN PATIENT LIZBET: Not Applicable Referrals: PCP,None [Primary Care Provider] - Forms: ED Department Discharge Critical Care Note - Critical Care Note Total Time (mins): 80 Comments: CRITCAL CARE: The high probability of sudden, clinically significant deterioration in the patient's condition required the highest level of my preparedness to intervene urgently. The services I provided to this patient were to treat and/or prevent clinically significant deterioration. Services included the following: chart data review, reviewing nursing notes and/or old charts, documentation time, [employer] consultant collaboration regarding findings and treatment options, medication orders and management, direct patient care, vital sign assessments and ordering, interpreting and reviewing diagnostic studies/lab tests. Aggregate critical care time includes only time during which I was engaged in work directly related to the patient's care, as described above, whether at the bedside or elsewhere in the Emergency Department. It did not include time spent performing other reported procedures or the services of residents, students, nurses or physician assistants. Frequent interventions and/or frequent repeat evaluations were required as well as counseling and coordination of care regarding prognosis, treatments, and discussions with patient, staff and consultants. Critical Care (excluding other procedures): 80 minutes Sepsis Event Note (ED) - Evaluation Sepsis Screening Result: No Definite Risk - Focused Exam Vital Signs: Vital Signs Temp Pulse Resp BP Pulse Ox 10/05/20 20:01 120 H 16 148/85 H 95 10/05/20 19:18 98.8 F 145 H 19 130/89 95 - My Orders Last 24 Hours: My Active Orders 10/05/20 19:20 PROCALCITONIN [REF] Stat 10/05/20 19:39 Cardiac Monitoring [RC] . DIRECTED Pulse Oximetry [RC] ASDIRECTED CORONAVIRUS COVID-19 PCR PHL Stat Sodium Chloride 0.9% [Saline Flush] 10 ml FLUSH ASDIRECTED PRN Sodium Chloride 0.9% [Saline Flush] 2.5 ml FLUSH ASDIRECTED PRN Saline Lock Insert [OM.PC] Stat 10/05/20 19:40 EKG Documentation Completion [RC] STAT BLOOD GAS ARTERIAL [BG] Stat Blood Culture x2 Reflex Set [OM.PC] Stat 10/05/20 20:10 CULTURE BLOOD [BC] Stat 10/05/20 20:20 CULTURE BLOOD [BC] Stat 10/05/20 21:15 Chest 1V Frontal [CR] Stat Head wo Cont [CT] Stat - Assessment/Plan Last 24 Hours: My Active Orders 10/05/20 19:20 PROCALCITONIN [REF] Stat 10/05/20 19:39 Cardiac Monitoring [RC] . DIRECTED Pulse Oximetry [RC] ASDIRECTED CORONAVIRUS COVID-19 PCR PHL Stat Sodium Chloride 0.9% [Saline Flush] 10 ml FLUSH ASDIRECTED PRN Sodium Chloride 0.9% [Saline Flush] 2.5 ml FLUSH ASDIRECTED PRN Saline Lock Insert [OM.PC] Stat 10/05/20 19:40 EKG Documentation Completion [RC] STAT BLOOD GAS ARTERIAL [BG] Stat Blood Culture x2 Reflex Set [OM.PC] Stat 10/05/20 20:10 CULTURE BLOOD [BC] Stat 10/05/20 20:20 CULTURE BLOOD [BC] Stat 10/05/20 21:15 Chest 1V Frontal [CR] Stat Head wo Cont [CT] Stat
[2020-10-05 20:18] LABS: BLOOD UREA NITROGEN,BUN 9 mg/dL (7.0-18.0); CARBON DIOXIDE,CO2 26.9 mmol/L (21.0-32.0); CHLORIDE,CL 103 mmol/L (98-107); GLUCOSE RANDOM 151 mg/dL (74-106); POTASSIUM,K 3.6 mmol/L (3.5-5.1); SODIUM,NA 140 mmol/L (136-148)
[2020-10-05 20:46] LABS: ACETAMINOPHEN <2.0 ug/mL
--- NOTE | 2020-10-05 22:12 | CT ---
DATE: 10/05/2020. CLINICAL HISTORY: Patient with altered mental status. TECHNIQUE: Standard helical CT image acquisition of the brain was performed. COMPARISON: 08/02/2020. FINDINGS: There is no intracranial hemorrhage. No extra-axial collection, mass effect, or midline shift. Hdz-white matter differentiation is maintained. Mild parenchymal atrophy with resulting prominence of cerebral sulci and the ventricular system. The calvarium is unremarkable. The orbits are unremarkable. The paranasal sinuses are unremarkable. The mastoid air cells are unremarkable. The soft tissues are unremarkable. IMPRESSION: 1. No CT evidence of acute intracranial abnormality. 2. Mild parenchymal atrophy, not significantly changed from the comparison study. Please note that all CT scans at this facility use dose modulation, iterative reconstruction, and/or weight-based dosing when appropriate to reduce radiation dose to as low as reasonably achievable. Dictated by Ori Brunner MD @ Oct 05 2020 11:13PM Signed by Dr. Ori Brunner @ Oct 05 2020 11:17PM
--- NOTE | 2020-10-05 22:42 | CR ---
INDICATION: Altered mental status TECHNIQUE: Upright AP view of the chest COMPARISON: PA and lateral chest radiographs 08/01/2020 FINDINGS: The lungs are clear. There is no sizable pleural effusion or pneumothorax. The cardiomediastinal silhouette is normal. The visualized osseous structures are unremarkable. IMPRESSION: No acute intrathoracic process. Dictated by Radha Murray MD @ Oct 05 2020 10:40PM Signed by Dr. Radha Murray @ Oct 05 2020 10:41PM
== END 2020-10-05 22:05 | disposition other institution (70) ==
LOC: MW.ED 18:45
DX: R41.82 Altered mental status, unspecified (principal); F13.20 Sedative, hypnotic or anxiolytic dependence, uncomplicated; I10 Essential (primary) hypertension; E66.9 Obesity, unspecified; Z88.8 Allergy status to other drugs, medicaments and biological substances; Z79.82 Long term (current) use of aspirin; Z79.899 Other long term (current) drug therapy; Z20.828 Contact with and (suspected) exposure to other viral communicable diseases
CPT/HCPCS: 36415; 70450; 71045; 80053; 80305; 80307; 81001; 82962; 83605; 83735; 84100; 84145; 84439; 84443; 84484; 85025; 85379; 85610; 85652; 85730; 86140; 87040; 87635; 93005; 96361; 96374; 96376; 99291; A9270; J7120; 93010; U0002

== ENCOUNTER 2022-01-03 02:22 | Observation (INO) | payer OTHER ==
[2022-01-03] MEDS ORDERED: Lactated Ringers 1,000 ML IV ONE (02:27)
[2022-01-03] MEDS ORDERED: LORazepam 2 MG/ML SDV ONE (02:40)
[2022-01-03] MEDS ORDERED: LORazepam 2 MG/ML SDV IVPUSH ONE (02:40)
[2022-01-03] MEDS ORDERED: Haloperidol Lactate 5 MG/ML SDV IM STA (03:34)
[2022-01-03] MEDS ORDERED: LORazepam 2 MG/ML SDV IVPUSH STA (03:34)
[2022-01-03] MEDS ORDERED: OLANZapine 10 MG in Water For Injection, Sterile 2.1 ML IM ONE (03:41)
[2022-01-03] MEDS ORDERED: Cefepime 1 GM in Premix Bag 1 BAG IV ONE (03:47)
[2022-01-03] MEDS ORDERED: Diphtheria,Pertussis(Acell),Tetanus Vaccine 0.5 ML Syringe IM ONE (03:49)
[2022-01-03] MEDS ORDERED: Lactated Ringers 1,000 ML IV STA (03:49)
[2022-01-03] MEDS ORDERED: VANCOmycin 2 GM/400 ML 2 GM in Premix Bag 1 BAG IV ONE (04:00)
[2022-01-03 04:01] LABS: ACETAMINOPHEN <2.0 ug/mL; BLOOD UREA NITROGEN,BUN 11 mg/dL (7.0-18.0); CARBON DIOXIDE,CO2 28.8 mmol/L (21.0-32.0); CHLORIDE,CL 107 mmol/L (98-107); GLUCOSE RANDOM 118 mg/dL (74-106); POTASSIUM,K 3.4 mmol/L (3.5-5.1); SODIUM,NA 146 mmol/L (136-148)
[2022-01-03] MEDS ORDERED: Iopamidol 755 MG/ML 500 ML Multipack Bottle IVPUSH ONE (04:31)
[2022-01-03] MEDS ORDERED: Propofol 200 MG/20 ML SDV IVPUSH STA ×3 (05:03→06:18)
[2022-01-03] MEDS ORDERED: Etomidate 2 MG/ML 20 ML SDV IVPUSH STA (05:04)
[2022-01-03] MEDS ORDERED: Rocuronium 50 MG/5 ML Vial IVPUSH STA (05:05)
[2022-01-03] MEDS: propofoL 100 ML IV SCH ×2 (05:16→10:10)
[2022-01-03] MEDS ORDERED: Rocuronium Bromide 50 MG/5 ML Syringe IVPUSH STA (05:28)
[2022-01-03] MEDS ORDERED: Midazolam 1 MG/ML 2 ML SDV IVPUSH ONE (08:03)
[2022-01-03] MEDS ORDERED: Midazolam 5 MG/ML 2 ML SDV IVPUSH ONE (11:11)
[2022-01-03] MEDS ORDERED: Midazolam 5 MG/ML SDV ONE ×2 (11:12→11:17)
[2022-01-03] MEDS ORDERED: VANCOmycin 1.75 GM/350 ML 350 ML IV SCH (17:00)
== END 2022-01-03 15:50 | disposition left against medical advice (07) ==
LOC: MW.ED 02:22 → MW.MS 13:10
PROVIDERS: ADMIT Internal Medicine; ATTEND Internal Medicine
DX: S01.01XA Laceration without foreign body of scalp, initial encounter (principal); S09.90XA Unspecified injury of head, initial encounter; S80.212A Abrasion, left knee, initial encounter; S80.211A Abrasion, right knee, initial encounter; S50.312A Abrasion of left elbow, initial encounter; S50.311A Abrasion of right elbow, initial encounter; E87.2 Acidosis; D72.829 Elevated white blood cell count, unspecified; E78.00 Pure hypercholesterolemia, unspecified; I10 Essential (primary) hypertension; E66.9 Obesity, unspecified; E87.6 Hypokalemia; R73.9 Hyperglycemia, unspecified; E83.51 Hypocalcemia; G93.40 Encephalopathy, unspecified; Z79.899 Other long term (current) drug therapy; Z79.82 Long term (current) use of aspirin; Z98.890 Other specified postprocedural states; Z20.822 Contact with and (suspected) exposure to COVID-19
CPT/HCPCS: 12002; 31500; 36415; 43752; 70450; 71045; 71260; 72125; 72128; 72131; 74177; 76705; 80053; 80143; 80179; 80305; 80307; 81001; 82550; 83605; 83735; 84484; 85025; 85610; 87040; 87635; 90471; 90715; 93005; 96365; 96366; 96367; 96372; 96375; 99285; J0692; J2060; J2704; J3370; J3490; J7120; Q9967; 93010; 99291; U0002

== ENCOUNTER 2022-01-04 14:27 | Emergency (ER) | payer OTHER ==
[2022-01-04] MEDS ORDERED: Sodium Chloride 0.9% 1,000 ML IV ONE (14:29)
[2022-01-04] MEDS ORDERED: Silver Sulfadiazine 1% Crm 400 GM Jar TOP ONE (14:44)
[2022-01-04 15:33] LABS: ACETAMINOPHEN <2.0 ug/mL
[2022-01-04 15:37] LABS: BLOOD UREA NITROGEN,BUN 10 mg/dL (7.0-18.0); CARBON DIOXIDE,CO2 26.2 mmol/L (21.0-32.0); CHLORIDE,CL 105 mmol/L (98-107); GLUCOSE RANDOM 100 mg/dL (74-106); POTASSIUM,K 4.1 mmol/L (3.5-5.1); SODIUM,NA 145 mmol/L (136-148)
[2022-01-04 15:45] LABS: LIPASE 61 U/L (73-393)
[2022-01-04] MEDS ORDERED: diphenhydrAMINE 50 MG/ML SDV IVPUSH ONE (16:30)
[2022-01-04] MEDS ORDERED: LORazepam 2 MG/ML SDV IVPUSH ONE (16:30)
[2022-01-04] MEDS ORDERED: Haloperidol Lactate 5 MG/ML SDV IM ONE (16:30)
== END 2022-01-04 17:30 ==
LOC: MW.ED 14:27
DX: T33.822A Superficial frostbite of left foot, initial encounter (principal); T33.821A Superficial frostbite of right foot, initial encounter; R41.82 Altered mental status, unspecified; R44.3 Hallucinations, unspecified; E78.00 Pure hypercholesterolemia, unspecified; I10 Essential (primary) hypertension; E66.9 Obesity, unspecified; Z68.30 Body mass index [BMI] 30.0-30.9, adult; Z88.8 Allergy status to other drugs, medicaments and biological substances; Z79.82 Long term (current) use of aspirin; X31.XXXA Exposure to excessive natural cold, initial encounter
CPT/HCPCS: 36415; 70450; 71045; 80053; 80143; 80179; 80305; 80307; 81001; 83690; 83735; 84443; 84484; 85025; 93005; 96372; 96374; 96375; 99285; A9270; J1200; J1630; J2060; J7030; 93010; 99283